=== PATIENT | female | born 1995 | race Two or more races ===

== ENCOUNTER 2023-11-18 02:18 | Emergency (ER) | payer BC, OTHER ==
[~2023-11-18] VITALS: Ht 165.1 cm; Wt 104.0 kg
[2023-11-18 06:29] VITALS: BP 128/87; PULSE 69; RESP 16; O2SAT 100
== END 2023-11-18 06:29 | disposition home or self-care (01) ==
LOC: ER 02:18
DX: R03.0 Elevated blood-pressure reading, without diagnosis of hypertension (principal); R07.89 Other chest pain
CPT/HCPCS: 93005